=== PATIENT | female | born 1955 | race Caucasian/White ===

== ENCOUNTER 2020-02-07 13:56 | Outpatient (CLI) | payer MEDICARE, SELFPAY ==
--- NOTE | 2020-02-07 14:06 | XR_ITS ---
WS: [id number] SCREENING DEXA SCAN [employer] CLINICAL INFORMATION: POST MENOPAUSAL SCREENING FOR OSTEOPOROSIS COMPARISON: None. FINDINGS: Included risk factors include family history, history of fracture, and secondary osteoporos is The L1-L4 bone mineral density measures 1.217 g/cm2. This corresponds to a T score score of 0.3 and Z score of 1.7. Left femoral neck bone mineral density measures 0.951 g/cm2. This corresponds to a T score of -0.4 an d Z score of 0.6. Right femoral neck bone mineral density measures 0.940 g/cm2. This corresponds to a T score -0.5of an d Z score of 0.5. Mean femoral neck bone mineral density measures 0.946 g/cm2. This corresponds to a T score of -0.5 an d Z score of 0.6. XR/XR DEXA axial skeleton* [id number] IMPRESSION: Normal bone mineralization. Patient's FRAX calculated 10 year probability for major osteoporotic fracture i s 25.4 % and osteoporotic hip fracture is 1.6%.
== END 2020-02-07 13:57 | disposition home or self-care (01) ==
LOC: RADWPI 13:59
PROVIDERS: Family Provider Family Medicine; PCP Family Medicine; Visit Provider Family Medicine
DX: Z78.0 Asymptomatic menopausal state (principal)
CPT/HCPCS: 77080

== ENCOUNTER → 2020-02-26 11:56 | Outpatient (BNVA) | payer MEDICARE, SELFPAY | PROVIDERS: Family Provider Family Medicine; PCP Family Medicine; Visit Provider Nurse Practitioner Family | DX: Z11.59 Encounter for screening for other viral diseases (principal) | CPT/HCPCS: 87635 ==

== ENCOUNTER → 2020-05-31 10:41 | Outpatient (BNVA) | payer MEDICARE, SELFPAY | PROVIDERS: Family Provider Family Medicine; PCP Family Medicine | DX: Z20.828 Contact with and (suspected) exposure to other viral communicable diseases (principal) | CPT/HCPCS: 87635 ==

== ENCOUNTER 2020-06-19 10:05 | Outpatient (CLI) | payer MEDICARE, SELFPAY ==
--- NOTE | 2020-06-19 10:32 | XR_ITS ---
WS: [id number] KNEE LEFT TECHNIQUE: 3 views of the left knee CLINICAL INFORMATION: KNEE PAIN COMPARISON: None. FINDINGS: Mild soft tissue edema. Osteopenia. Mild tricompartmental arthritis. Slightly hypertrophic patella. N o significant joint effusion. No acute fractures. XR/XR knee LT 3V* [id number] IMPRESSION: Mild soft tissue edema with mild tricompartment arthritis. No acute fractures.
== END 2020-06-19 10:06 | disposition home or self-care (01) ==
LOC: RADWPI 10:13
PROVIDERS: PCP Family Medicine; Visit Provider Family Medicine
DX: R60.0 Localized edema (principal); M13.862 Other specified arthritis, left knee
CPT/HCPCS: 73562

== ENCOUNTER 2020-07-29 07:57 | Outpatient (CLI) | payer MEDICARE, SELFPAY ==
--- NOTE | 2020-07-29 08:06 | MR_ITS ---
WS: [id number] MRI LEFT KNEE NONCONTRAST TECHNIQUE: Axial PD, coronal PD fat sat, coronal PD, sagittal PD, and sagittal PD fat-sat images obta ined. CLINICAL INFORMATION: KNEE PAIN;LEFT LEG PAIN COMPARISON: None. FINDINGS: Distal quadriceps and patella tendons are normal. Small suprapatellar effusion. Normal ACL and PCL. N ormal medial meniscus. Small horizontal tear involving the anterior horn lateral meniscus extending t o the articular surface. This extends to the meniscal root. Advanced chondromalacia patella with subc hondral edema. This is worse involving the lateral patella facet. Moderate degenerative arthritis inv olving the medial and lateral joint compartments and patellofemoral articulation. Medial and lateral collateral ligaments are intact. Normal popliteal fossa. MR/MR knee LT wo con* [id number] IMPRESSION: 1. Normal anterior and posterior cruciate ligaments. 2. Small horizontal tear involving the anterior horn lateral meniscus. 3. Moderate tricompartmental arthritis. 4. Advanced chondromalacia patella with a small amount of subchondral edema.
== END 2020-07-29 07:58 | disposition home or self-care (01) ==
LOC: RADSHAW 08:04
PROVIDERS: PCP Family Medicine; Visit Provider Family Medicine
DX: S83.282A Other tear of lateral meniscus, current injury, left knee, initial encounter (principal); X58.XXXA Exposure to other specified factors, initial encounter; M17.12 Unilateral primary osteoarthritis, left knee; M22.42 Chondromalacia patellae, left knee; R60.0 Localized edema
CPT/HCPCS: 73721

== ENCOUNTER 2020-12-05 11:59 | Outpatient (CLI) | payer MEDICARE, SELFPAY ==
--- NOTE | 2020-12-05 12:05 | MM_ITS ---
WS: [id number] Bilateral screening digital mammogram, 12/05/2020 Clinical Data: SCREENING Comparison: 07/17/2019, 06/13/2018, 05/27/2017, 05/12/2016, 02/03/2015, 11/30/2013, 11/20/2012, 10/14/2011, 08/06/2010, 07/07/2009, 06/24/2008, 06/12/2007, 06/07/2006. Findings: The breast parenchymal pattern shows heterogeneous density No spiculated masses or clustered calcific ations are seen. There are no secondary signs of carcinoma. MM/[place] [id number] Impression: 1. Negative bilateral mammogram unchanged. 2. Recommend annual screening mammograms. BIRADS: 1-Negative FOLLOW UP: 1 Year Follow-up The CAD glass checker was used.
== END 2020-12-05 12:00 | disposition home or self-care (01) ==
LOC: RADSHAW 12:04
PROVIDERS: PCP Family Medicine; Visit Provider Family Medicine
DX: Z12.31 Encounter for screening mammogram for malignant neoplasm of breast (principal)
CPT/HCPCS: 77067

== ENCOUNTER 2022-02-09 14:18 | Outpatient (CLI) | payer MEDICARE, SELFPAY ==
--- NOTE | 2022-02-09 14:21 | MM_ITS ---
WS: [id number] BILATERAL 3D TOMOSYNTHESIS DIGITAL SCREENING MAMMOGRAPHY WITH CAD CLINICAL INFORMATION: SCREENING HISTORY: Screening mammogram. No current complaints. COMPARISON: December 05, 2020 TECHNIQUE: Bilateral CC and MLO views. FINDINGS: The breasts are composed of heterogeneous fibroglandular density tissue, which can limit the detectio n of small underlying mass lesions. Incidental calcifications RIGHT breast. No suspicious mass, asymm etry, calcifications, or architectural distortion. No evidence of malignancy. MM/[place] [id number] IMPRESSION: BI-RADS: 2-Benign FOLLOW UP: 1 Year Follow-up Recommend return to annual screening mammography.
== END 2022-02-09 14:19 | disposition home or self-care (01) ==
LOC: RAD 14:20
PROVIDERS: PCP Family Medicine; Visit Provider Family Medicine
DX: Z12.31 Encounter for screening mammogram for malignant neoplasm of breast (principal)
CPT/HCPCS: 77063; 77067

== ENCOUNTER 2022-05-18 10:31 | Outpatient (CLI) | payer MEDICARE, SELFPAY ==
--- NOTE | 2022-05-18 10:45 | XR_ITS ---
WS: [id number] Right shoulder, 3 views, 05/18/2022 Clinical Data: shoulder pain Comparison: None. Findings: No fractures or dislocations are seen. The AC joint is normal. The adjacent right clavicle, right sca pula and ribs are normal. The soft tissues are unremarkable. There are small artifacts in the right infra clavicular region. XR/XR shoulder RT min 2V* [id number] Impression: Negative right shoulder.
== END 2022-05-18 10:32 | disposition home or self-care (01) ==
PROVIDERS: PCP Family Medicine; Visit Provider Family Medicine
DX: M25.511 Pain in right shoulder (principal); E11.9 Type 2 diabetes mellitus without complications; E78.5 Hyperlipidemia, unspecified; I10 Essential (primary) hypertension; M19.019 Primary osteoarthritis, unspecified shoulder
CPT/HCPCS: 73030; 80053; 80061; 82607; 83036

== ENCOUNTER 2022-11-05 08:16 | Outpatient (CLI) | payer MEDICARE, SELFPAY ==
[2022-11-05 09:27] LABS: Basophils # 0.1 10^3/uL (0.0-0.1); Basophils % 1.1 %; Eosinophils # 0.3 10^3/uL (0.0-0.8); Eosinophils % 3.2 %; Hemoglobin 14.5 g/dL (11.5-15.3); Lymphocytes # 2.7 10^3/uL (0.8-4.8); Lymphocytes % 32.1 %; Mean Corpuscular Hemoglobin 27.5 pg (28.0-34.0); Mean Corpuscular Volume 83.5 fl (81-99); Mean Platelet Volume 10.6 fL (7.4-10.4); Monocytes # 0.6 10^3/uL (0.2-0.9); Monocytes % 6.6 %; Neutrophils % 56.6 %; Nucleated Red Blood Cells % 0 %; Platelet Count 315 10^3/cmm (130-400); Red Blood Count 5.27 10^6/uL (4.1-5.3); Red Cell Distribution Width 13.9 % (12.1-15.1); White Blood Count 8.5 10^3/uL (4.0-10.0)
[2022-11-05 09:41] LABS: Estmated Average Glucose 197; Hemoglobin A1C 8.5 % (4.0-6.0)
[2022-11-05 10:02] LABS: Alanine Aminotransferase 29 U/L (0-33); Albumin Level 4.3 g/dL (3.5-5.2); Alkaline Phosphatase 81 U/L (35-105); Anion Gap 17.3 (5-19); Aspartate Amino Transferase 26 U/L (0-32); Blood Urea Nitrogen 10 mg/dL (8-23); Calcium 9.6 mg/dL (8.5-10.5); Carbon Dioxide 26 mmol/L (22-29); Chloride 98 mmol/L (98-107); Chol HDL Ratio 3.45 mg/dL (0.0-4.40); Cholesterol 190 mg/dL (0-200); Glomerular Filtration Rate 122.7 mL/min (90-130); Glucose 160 mg/dL (65-115); HDL Cholesterol 55 mg/dL (60-100); LDL Cholesterol Calculated 99 mg/dL (50-129); Osmolality Calculated 286 mOsm/kg (285-295); Potassium 4.3 mmol/L (3.5-5.1); Sodium 137 mmol/L (136-145); Thyroid Stimulating Hormone 1.63 uIU/mL (0.27-4.20); Total Bilirubin 0.3 mg/dL (0.15-1.2); Total Protein 7.3 g/dL (6.6-8.7); Triglycerides 178 mg/dL (0-150)
== END 2022-11-05 08:17 | disposition home or self-care (01) ==
PROVIDERS: Visit Provider Internal Medicine
DX: E11.9 Type 2 diabetes mellitus without complications (principal)
CPT/HCPCS: 36415; 80053; 80061; 83036; 84443; 85025

== ENCOUNTER → 2022-12-30 09:09 | Outpatient (BNVA) | payer MEDICARE, SELFPAY | PROVIDERS: Visit Provider Internal Medicine Cardiovascular Disease | DX: R00.2 Palpitations (principal); R00.0 Tachycardia, unspecified; I49.1 Atrial premature depolarization; I49.3 Ventricular premature depolarization | CPT/HCPCS: 93225 ==

== ENCOUNTER → 2023-05-12 08:30 | Outpatient (BNVA) | payer MEDICARE, SELFPAY | PROVIDERS: Visit Provider Nurse Practitioner Family | DX: R09.81 Nasal congestion (principal); Z20.822 Contact with and (suspected) exposure to COVID-19 | CPT/HCPCS: 87426 ==

== ENCOUNTER 2023-05-17 11:52 | Outpatient (CLI) | payer MEDICARE, SELFPAY ==
--- NOTE | 2023-05-17 12:01 | MM_ITS ---
WS: [id number] BILATERAL 3D TOMOSYNTHESIS DIGITAL SCREENING MAMMOGRAPHY WITH CAD CLINICAL INFORMATION: SCREENING HISTORY: Screening mammogram. No current complaints. COMPARISON: 2021 TECHNIQUE: Bilateral CC and MLO views. FINDINGS: The breasts are composed of heterogeneous fibroglandular density tissue, which can limit the detectio n of small underlying mass lesions. No suspicious mass, asymmetry, calcifications, or architectural d istortion. No evidence of malignancy. Incidental punctate calcifications. IMPRESSION: MM/[id number] BI-RADS: 2-Benign FOLLOW UP: 1 Year Follow-up Recommend return to annual screening mammography.
== END 2023-05-17 11:53 | disposition home or self-care (01) ==
PROVIDERS: Visit Provider Internal Medicine
DX: Z12.31 Encounter for screening mammogram for malignant neoplasm of breast (principal)
CPT/HCPCS: 77063; 77067

== ENCOUNTER 2024-06-15 09:24 | Outpatient (CLI) | payer MEDICARE, SELFPAY ==
--- NOTE | 2024-06-15 09:25 | MM_ITS ---
WS: [id number] Bilateral screening 3D tomosynthesis digital mammogram, 06/15/2024 9:28 AM Clinical Data: SCREENING Comparison: 05/17/2023, 02/09/2022, 12/05/2020, 07/17/2019, 06/13/2018, 05/27/2017, 05/12/2016, 02/03/2015 , 11/30/2013, 11/20/2012, 10/14/2011, 08/06/2010, 07/07/2009, 06/24/2008, 06/12/2007, 06/07/2006. Findings: No spiculated masses or clustered calcifications are seen. There are no secondary signs of carcinoma . MM/MM scr BI tomosynthesis [id number] Impression: Negative bilateral mammogram unchanged. Recommend annual screening mammograms. BIRADS: 1 - Negative FOLLOW UP: 1 Year Follow-up DENSITY: The breasts are heterogeneously dense, which may obscure small masses. The CAD tool drawing checker was used
== END 2024-06-15 09:25 | disposition home or self-care (01) ==
PROVIDERS: Visit Provider Family Medicine
DX: Z12.31 Encounter for screening mammogram for malignant neoplasm of breast (principal)
CPT/HCPCS: 77063; 77067

== ENCOUNTER 2024-07-04 13:38 | Outpatient (CLI) | payer MEDICARE, SELFPAY ==
--- NOTE | 2024-07-04 13:44 | USCV_ITS ---
Maricel Hoffman Age: 69 Gender: F : 1955 Exam Date: 07/04/2024 14:00 Ordering Phys: Abrahan Burgess MD Technologist: MEGHAN [place] [facility] [place]: FATIGUE BP: 129 / 69 HR: 76 Rhythm: Sinus Technical Quality: Adequate MEASUREMENTS (Male / Female) Normal Values 2D ECHO LV Diastolic Diameter PLAX 4.6 cm 4.2 - 5.9 / 3.9 - 5.3 cm IVS Diastolic Thickness 1.3 cm 0.6 - 1.0 / 0.6 - 0.9 cm IVS Systolic Thickness 1.5 cm LVPW Diastolic Thickness 1.5 cm 0.6 - 1.0 / 0.6 - 0.9 cm LVPW Systolic Thickness 1.7 cm LVOT Diameter 2.0 cm LV Ejection Fraction 2D Teich 60.3 % LV Ejection Fraction MOD 4C 65.6 % LV Ejection Fraction MOD 2C 67.6 % LV Ejection Fraction 2C AL 66.8 % LA Diameter 2.6 cm RA Systolic Volume 4C AL 11.5 ml RA Systolic Volume 4C MOD 11.5 ml LA Sys Volume AL 21.9 cm cubed LA Sys Volume Index AL 11.8 cm cubed/m squared Aorta at Sinotubular Diameter 2.4 cm IVC Diameter 1.5 cm M-MODE LA Ao Ratio MM 1.1 AV Cusp Separation MM 1.5 cm DOPPLER AV Peak Velocity 114.0 cm/s LVOT Peak Velocity 94.0 cm/s AV Area Cont Eq vti 2.1 cm squared AV Area Cont Eq pk 2.5 cm squared MV Peak Velocity 99.0 cm/s MV Area PHT 4.3 cm squared Mitral E to A Ratio 0.8 TR Peak Velocity 168.0 cm/s TR Peak Gradient 11.3 mmHg TR Mean Velocity 153.0 cm/s TR Mean Gradient 9.5 mmHg TR Velocity Time Integral 50.4 cm TV Peak E Velocity 53.0 cm/s PV Peak Velocity 101.0 cm/s RV Ejection Time 0.3 s FINDINGS Left Ventricle Left ventricular is normal in size. LV systolic function is normal with EF of 60 to 65%. No regional wall motion abnormalities are seen. Grade 1 diastolic dysfunction. Right Ventricle Normal in size and function Right Atrium Normal in size Left Atrium Normal in size Mitral Valve Structurally normal mitral valve. Trace mitral regurgitation. Aortic Valve Structurally normal aortic valve. No significant stenosis or regurgitation. Tricuspid Valve Insufficient TR jet to calculate RVSP Pulmonic Valve Not well visualized Pericardium Normal Aorta Normal in size IVC Appears to be normal CONCLUSIONS LV systolic function is normal with EF of 60 to 65%. Grade 1 diastolic dysfunction. Trace mitral regurgitation No comparison studies are available. Werner Medina MD (Electronically Signed) Final Date: 05 July 2024 07:29 S
== END 2024-07-04 13:39 | disposition home or self-care (01) ==
LOC: RAD 13:40
PROVIDERS: PCP Family Medicine; Visit Provider Family Medicine
DX: I50.30 Unspecified diastolic (congestive) heart failure (principal); R53.83 Other fatigue
CPT/HCPCS: 93306

== ENCOUNTER 2024-07-12 00:59 | Emergency (ER) | payer MEDICARE, SELFPAY ==
[2024-07-12 01:04] VITALS: BP 139/83; PULSE 97; RESP 18; TEMP 36.3; O2SAT 98; BMI 26.7
[2024-07-12 01:06] VITALS: BP 139/83; PULSE 97; RESP 17; O2SAT 98
[2024-07-12] MEDS: ondansetron 2 mg/ML SDV 2 mL 4 MG IVP (01:24)
[2024-07-12] MEDS: sodium chloride 0.9% 500 ML 999 ML IV (01:24)
[2024-07-12 01:25] LABS: Basophils # 0.1 10^3/uL (0.0-0.1); Basophils % 0.3 %; Eosinophils # 0.1 10^3/uL (0.0-0.8); Eosinophils % 0.6 %; Hematocrit 46.7 % (36-47); Lymphocytes # 2.5 10^3/uL (0.8-4.8); Lymphocytes % 15.7 %; Mean Corpuscular HGB Conc 33.6 g/dL (30-55); Mean Corpuscular Hemoglobin 27.4 pg (27-33); Mean Corpuscular Volume 81.5 fl (85-98); Mean Platelet Volume 9.8 fL (7.4-10.4); Monocytes # 0.9 10^3/uL (0.2-0.9); Monocytes % 5.8 %; Neutrophils # 12.28 10^3/uL (1.8-7.7); Neutrophils % 77.3 %; Nucleated Red Blood Cells % 0 %; Platelet Count 351 10^3/cmm (157-399); Red Blood Count 5.73 10^6/uL (3.85-5.65); Red Cell Distribution Width 13.4 % (12.1-15.1); White Blood Count 15.89 10^3/uL (3.29-11.43)
--- NOTE | 2024-07-12 01:30 | ED_ITS ---
HPI - Nausea/Vomiting/Diarrhea 2 General: Chief complaint: Nausea/Vomiting/Diarrhea Stated complaint: Vomiting\Diah Time Seen by Provider: 07/12/24 01:06 History of Present Illness: Patient presents to the ER with complaints of nausea vomiting diarrhea that all started today about 8 PM. She said she has vomited multiple times but is slow down but then the diarrhea started picking up. Patient denies any fevers chills coughs colds bad food or sick contacts. Denies abdominal pain other than when she is vomiting. No pain burning frequency with urinating Related Data Home Medications Medication Instructions Recorded Confirmed allergy pill PO 05/31/20 10/09/23 glimepiride 4 mg tablet mg PO 05/12/23 10/09/23 losartan 100 mg tablet tab PO 05/12/23 10/09/23 pantoprazole 20 mg tablet,delayed tab PO 05/12/23 10/09/23 release sitagliptin phosphate 100 mg mg PO 05/12/23 10/09/23 tablet (Januvia) trazodone 100 mg tablet mg PO 05/12/23 10/09/23 Previous Rx's Medication Instructions Recorded BD single use swabs, true metrix #1 ea 04/21/22 level 1 control solution, true metrix blood glucose meter and trueplus 3 levocetirizine 5 mg tablet See Rx Instructions .Route 05/04/22 .COMPLEX #90 tabs blood sugar diagnostic (Accu-Chek #400 strips 05/06/22 Stephanie Plus test strips) metformin 1,000 mg tablet See Rx Instructions .Route 09/13/22 .COMPLEX #180 tabs glipizide 5 mg tablet 2.5 mg (1/2 x 5 mg) PO DAILY for 10/07/22 DM #45 tabs alcohol swabs (DropSafe Alcohol See Rx Instructions .Route 10/10/22 Prep Pads) .COMPLEX #100 swabs alprazolam 0.25 mg tablet 0.125 - 0.25 mg (0.5 - 1 x 0.25 10/10/22 mg) PO BID #60 tabs blood glucose control, low (True #1 ea 10/10/22 Metrix Level 1 solution) blood-glucose meter (True Metrix #1 kit 10/10/22 Air Glucose Meter kit) lancets 33 gauge (TRUEplus Lancets) #100 ea 10/10/22 fluticasone propionate 50 1 - 2 spray intranasal DAILY #16 09/15/23 mcg/actuation nasal grams spray,suspension amoxicillin 875 mg-potassium 1 tab PO BID 10 days #20 tabs 10/09/23 clavulanate 125 mg tablet ondansetron HCl 4 mg tablet 4 mg PO Q8H PRN nausea and 07/12/24 vomiting #14 tabs Allergies Allergy/AdvReac Type Severity Reaction Status Date / Time aspirin Allergy swelling, Verified 07/12/24 01:07 puffy face, rash Review of Systems 2 General: Reports: 10 or more systems reviewed and unremarkable except in HPI and below PFSH ED 2 PFSH: Medical History Carpal tunnel syndrome of right wrist Trigger finger Hyperlipidemia Hypertension Diabetes Surgical History H/O section H/O: hysterectomy Family History Other Diabetes Hypertension Social History Smoking and tobacco/nicotine status: never used tobacco/nicotine Alcohol intake: never Substance/Drug Use: never Female Reproductive History: Spontaneous abortions: No Physical Exam 2 Const: COMMON NORMALS: no acute distress, average body habitus, patient oriented x3, no limitations, healthy appearing, alert and well nourished HENMT: COMMON NORMALS: normocephalic, atraumatic, hearing grossly normal bilaterally, external ears normal, Normal external nose present and moist oral mucous membranes HEAD & SCALP: normocephalic and atraumatic NOSE: Normal external nose present EXTERNAL EAR: Yes external ears normal Neck/C-Spine: COMMON NORMALS: no JVD Chest: COMMONS NORMALS: normal inspection of the chest and normal palpation of entire chest wall Resp: COMMON NORMALS: normal respiratory effort, No retractions, No use of accessory muscles and clear to auscultation bilaterally AUSCULTATION: clear to auscultation bilaterally Cardio: COMMON NORMALS: no JVD, regular rate, regular rhythm, S1 normal heart sound present, S2 normal heart sound present, No gallops present (Cardio), No clicks present (Cardio), No murmurs present (Cardio) and No rub (Cardio) R ATE: regular rate RHYTHM: regular rhythm HEART SOUNDS: S1 normal heart sound present and S2 normal heart sound present GI: COMMON NORMALS: Normal to inspection, nondistended, normoactive bowel sounds present, Soft to palpation, non-tender, No hepatosplenomegaly present and no masses PALPATION: Yes Soft to palpation and Yes No hepatosplenomegaly present Neuro: COMMON NORMALS: patient oriented x3 SENSORIUM/ORIENTATION: Yes alert Course 2 Vital Signs: Vital signs: Vital Signs Temperature 97.3 F L 07/12/24 01:04 Pulse Rate 83 07/12/24 02:06 Respiratory Rate 16 07/12/24 02:06 Blood Pressure 131/68 07/12/24 02:06 Pulse Oximetry 95 07/12/24 02:06 Oxygen Delivery Me thod Room Air 07/12/24 02:06 MDM - Nausea/Vomiting/Diarrhea Medical Decision Making Patient was given 500 mL of normal saline bolus and 4 mg Zofran, was waiting for lab work to come back which came back as unremarkable. Patient says she felt much better and will be discharged home. Patient had no bouts of vomiting or diarrhea during the ER. Medical Records I reviewed the patient's medical records. Lab Data I reviewed the patient's lab results. 07/12/24 01:20 07/12/24 01:20 Laboratory Results WBC 15.89 10^3/uL (3.29-11.43) H 07/12/24 01:20 RBC 5.73 10^6/uL (3.85-5.65) H 07/12/24 01:20 Hgb 15.70 g/dL (11.27-16.99) 07/12/24 01:20 Hct 46.7 % (36-47) 07/12/24 01:20 MCV 81.5 fl (85-98) L 07/12/24 01:20 MCH 27.4 pg (27-33) 07/12/24 01:20 MCHC 33.6 g/dL (30-55) 07/12/24 01:20 RDW 13.4 % (12.1-15.1) 07/12/24 01:20 Plt Count 351 10^3/cmm (157-399) 07/12/24 01:20 MPV 9.8 fL (7.4-10.4) 07/12/24 01:20 Neut % (Auto) 77.3 % 07/12/24 01:20 Lymph % (Auto) 15.7 % 07/12/24 01:20 [place] % (Auto) 5.8 % 07/12/24 01:20 Eos % (Auto) 0.6 % 07/12/24 01:20 Baso % (Auto) 0.3 % 07/12/24 01:20 Neut # (Auto) 12.28 10^3/uL (1.8-7.7) H 07/12/24 01:20 Lymph # (Auto) 2.5 10^3/uL (0.8-4.8) 07/12/24 01:20 [place] # (Auto) 0.9 10^3/uL (0.2-0.9) 07/12/24 01:20 Eos # (Auto) 0.1 10^3/uL (0.0-0.8) 07/12/24 01:20 Baso # (Auto) 0.1 10^3/uL (0.0-0.1) 07/12/24 01:20 Nucleated RBC % (auto) 0 % 07/12/24 01:20 Nucleated RBCs # 0.0 /100WBC 07/12/24 01:20 Sodium 139 mmol/L (136-145) 07/12/24 01:20 Potassium 3.8 mmol/L (3.5-5.1) 07/12/24 01:20 Chloride 96 mmol/L (98-107) L 07/12/24 01:20 Carbon Dioxide 26 mmol/L (22-29) 07/12/24 01:20 Anion Gap 20.8 (5-19) H 07/12/24 01:20 BUN 14 mg/dL (8-23) 07/12/24 01:20 Creatinine 0.6 mg/dL (0.5-0.9) 07/12/24 01:20 GFR Calculation 98.8 mL/min (90-130) 07/12/24 01:20 Glucose 243 mg/dL (65-115) H 07/12/24 01:20 Calculated Osmolality 297 mOsm/kg (285-295) H 07/12/24 01:20 Calcium 10.4 mg/dL (8.5-10.5) 07/12/24 01:20 Magnesium 1.5 mg/dL (1.7-2.3) L 07/12/24 01:20 Total Bilirubin 0.6 mg/dL (0.15-1.2) 07/12/24 01:20 AST 20 U/L (0-32) 07/12/24 01:20 ALT 21 U/L (0-33) 07/12/24 01:20 Alkaline Phosphatase 85 U/L (35-105) 07/12/24 01:20 Total Protein 7.8 g/dL (6.6-8.7) 07/12/24 01:20 Albumin 4.6 g/dL (3.5-5.2) 07/12/24 01:20 Globulin 3.2 g/dL (1.3-4.6) 07/12/24 01:20 Urine Color Yellow (Yellow) 07/12/24 02:00 Urine Appearance Clear (CLEAR) 07/12/24 02:00 Urine pH 6.5 (5-7) 07/12/24 02:00 Ur Specific Matthews 1.026 (1.005-1.030) 07/12/24 02:00 Urine Protein Trace (Negative) A 07/12/24 02:00 Urine Glucose (UA) Trace (Normal) H 07/12/24 02:00 Urine Ketones 2+ (Negative) H 07/12/24 02:00 Urine Blood Negative (Negative) 07/12/24 02:00 Urine Nitrate Negative (Negative) 07/12/24 02:00 Urine Bilirubin Negative (Negative) 07/12/24 02:00 Urine Urobilinogen 1.0 mg/dL (Negative) 07/12/24 02:00 Ur Leukocyte Esterase Negative (Negative) 07/12/24 02:00 Urine RBC 0-2 /hpf (0-2) 07/12/24 02:00 Urine WBC 0-5 /hpf (0-5) 07/12/24 02:00 Ur Squamous Epith Cells 0-5 /hpf (0-5) 07/12/24 02:00 Amorphous Sediment Not Reportable 07/12/24 02:00 Urine Bacteria None seen /hpf (NONE) 07/12/24 02:00 Hyaline Casts 0.81 /lpf 07/12/24 02:00 All radiology interpretation(s) finalized by discharge Discharge Plan Discharge Patient Disposition: Home Clinical Impression: Gastroenteritis Condition: Stable Prescriptions: New ondansetron HCl 4 mg tablet 4 mg PO Q8H PRN (Reason: nausea and vomiting) Qty: 14 0RF No Action allergy pill PO losartan 100 mg tablet PO glimepiride 4 mg tablet PO Januvia 100 mg tablet PO pantoprazole 20 mg tablet,delayed release (DR/EC) PO trazodone 100 mg tablet PO amoxicillin-pot clavulanate 875-125 mg tablet 1 tab PO BID 10 Days Qty: 20 0RF (DME) BD single use swabs, true metrix level 1 control solution, true metrix blood glucose meter and trueplus 3 See Rx Instructions .Route .MEDSUPPLY Qty: 1 0RF Rx Instructions: check blood sugars once daily, some fasting and some 1 hr post meal levocetirizine 5 mg tablet See Rx Instructions .ROUTE .COMPLEX Qty: 90 3RF Dose Instruction: TAKE 1 TABLET EVERY DAY FOR ALLERGIES Rx Instructions: TAKE 1 TABLET EVERY DAY FOR ALLERGIES (DME) Accu-Chek Stephanie Plus test strp Strip See Rx Instructions .ROUTE .COMPLEX Qty: 400 5RF Dose Instruction: TEST FASTING BLOOD SUGAR DAILY AND ONE HOUR POST MEALS FOR MONITORING DIABETES Rx Instructions: TEST FASTING BLOOD SUGAR DAILY AND ONE HOUR POST MEALS FOR MONITORING DIABETES metformin 1,000 mg tablet See Rx Instructions .ROUTE .COMPLEX Qty: 180 3RF Dose Instruction: TAKE 1 TABLET TWICE DAILY FOR DIABETES Rx Instructions: TAKE 1 TABLET TWICE DAILY FOR DIABETES glipizide 5 mg tablet 2.5 mg PO DAILY Qty: 45 3RF alprazolam 0.25 mg tablet 0.125 - 0.25 mg PO BID Qty: 60 5RF (DME) blood-glucose meter [True Metrix Air Glucose Meter] Kit See Rx Instructions .ROUTE .COMPLEX Qty: 1 11RF Dose Instruction: USE DIRECTED Rx Instructions: USE DIRECTED (DME) True Metrix Level 1 Solution See Rx Instructions .ROUTE .COMPLEX Qty: 1 11RF Dose Instruction: USE DIRECTED WITH GLUCOSE METER Rx Instructions: USE DIRECTED WITH GLUCOSE METER alcohol swabs [DropSafe Alcohol Prep Pads] Pads, Medicated See Rx Instructions .ROUTE .COMPLEX Qty: 100 11RF Dose Instruction: USE TO CHECK BLOOD SUGAR ONE TIME DAILY, SOME FASTING AND SOME 1 HOUR POST MEAL Rx Instructions: USE TO CHECK BLOOD SUGAR ONE TIME DAILY, SOME FASTING AND SOME 1 HOUR POST MEAL (DME) lancets [TRUEplus Lancets] 33 gauge misc See Rx Instructions .ROUTE .COMPLEX Qty: 100 11RF Dose Instruction: CHECK BLOOD SUGAR ONE TIME DAILY, SOME FASTING AND SOME 1 HOUR POST MEAL Rx Instructions: CHECK BLOOD SUGAR ONE TIME DAILY, SOME FASTING AND SOME 1 HOUR POST MEAL fluticasone propionate 50 mcg/actuation spray,suspension 1 - 2 spray intranasal DAILY Qty: 16 5RF Rx Instructions: administer into each nostril Discharge Orders: Discharge ED (Routine); Ordered 07/12/24 Ordered By: Narciso Davis Referrals: Abrahan Burgess MD [Primary Care Provider] - 1 week Patient Instructions: Gastroenteritis (ED) Activity Restrictions/Additional Instructions: Thank you for choosing [facility] for your healthcare needs today. Please realize that you were seen in the emergency department and that we are providing you with an emergency medical screening exam and this may not be a complete and all exclusive of all testing and/or medical workup we may need to determine your element or severity of your illness. It is very important that you follow-up as instructed with your primary care provider or specialist for the additional evaluation and to discuss your medical treatment plan. You may return to the emergency department should you have concerns or if your condition changes or worsens in any way. Coding Level of Care Code ED Extended Insurance Clerk for Rafaela Presley
[2024-07-12 01:49] LABS: Alanine Aminotransferase 21 U/L (0-33); Albumin Level 4.6 g/dL (3.5-5.2); Alkaline Phosphatase 85 U/L (35-105); Anion Gap 20.8 (5-19); Aspartate Amino Transferase 20 U/L (0-32); Blood Urea Nitrogen 14 mg/dL (8-23); Calcium 10.4 mg/dL (8.5-10.5); Carbon Dioxide 26 mmol/L (22-29); Chloride 96 mmol/L (98-107); Creatinine Clr Calc Pharmacy 60.7776; Globulin 3.2 g/dL (1.3-4.6); Glomerular Filtration Rate 98.8 mL/min (90-130); Glucose 243 mg/dL (65-115); Magnesium 1.5 mg/dL (1.7-2.3); Osmolality Calculated 297 mOsm/kg (285-295); Potassium 3.8 mmol/L (3.5-5.1); Sodium 139 mmol/L (136-145); Total Bilirubin 0.6 mg/dL (0.15-1.2); Total Protein 7.8 g/dL (6.6-8.7)
[2024-07-12 02:06] VITALS: BP 131/68; PULSE 83; RESP 16; O2SAT 95
[2024-07-12 02:24] LABS: Bilirubin Urine Negative (Negative); Blood Urine Negative (Negative); Glucose Urine UA Trace (Normal); Ketones Urine 2+ (Negative); Leukocyte Esterase Urine Negative (Negative); Nitrate Urine Negative (Negative); Protein Urine Trace (Negative); Specific Gravity, Urine 1.026 (1.005-1.030); Urine Appearance Clear (CLEAR); Urine Color Yellow (Yellow); pH Urine 6.5 (5-7)
[2024-07-12 02:29] LABS: Add Urine Microscopic? YES; Bacteria Urine None Seen /hpf; Hyaline Casts Urine 0.81 /lpf; RBC Urine 0-2 /hpf (0-2); Squamous Epithelial Cell Urine 0-5 /hpf (0-5); WBC Urine 0-5 /hpf (0-5)
[2024-07-12 02:30] VITALS: BP 130/69; PULSE 83; RESP 16; O2SAT 96
[2024-07-12 03:00] VITALS: BP 127/80; PULSE 88; RESP 17; O2SAT 92
[2024-07-12 03:29] VITALS: BP 127/80; PULSE 70; O2SAT 96
== END 2024-07-12 03:29 | disposition home or self-care (01) ==
PROVIDERS: Emergency Provider Emergency Medicine; PCP Family Medicine
DX: K52.9 Noninfective gastroenteritis and colitis, unspecified (principal); E11.9 Type 2 diabetes mellitus without complications; I10 Essential (primary) hypertension; E78.5 Hyperlipidemia, unspecified
CPT/HCPCS: 36415; 80053; 81001; 83735; 85025; 96361; 96374; 99284; J2405; J7040

== ENCOUNTER 2024-12-24 08:25 | Emergency (ER) | payer MEDICARE, SELFPAY ==
[2024-12-24 08:44] VITALS: BP 159/88; PULSE 100; RESP 18; TEMP 36.7; O2SAT 98; BMI 27.1
[2024-12-24 09:05] LABS: Basophils # 0.1 10^3/uL (0.0-0.1); Basophils % 0.5 %; Eosinophils # 0.1 10^3/uL (0.0-0.8); Eosinophils % 0.6 %; Hematocrit 45.4 % (36-47); Lymphocytes % 21.5 %; Mean Corpuscular HGB Conc 32.6 g/dL (30-55); Mean Corpuscular Hemoglobin 27.5 pg (27-33); Mean Corpuscular Volume 84.2 fl (85-98); Mean Platelet Volume 10.1 fL (7.4-10.4); Monocytes # 1.1 10^3/uL (0.2-0.9); Neutrophils # 9.59 10^3/uL (1.8-7.7); Nucleated Red Blood Cells % 0 %; Platelet Count 282 10^3/cmm (157-399); Red Blood Count 5.39 10^6/uL (3.85-5.65); Red Cell Distribution Width 13.4 % (12.1-15.1); White Blood Count 13.93 10^3/uL (3.29-11.43)
[2024-12-24 09:23] LABS: Alanine Aminotransferase 13 U/L (0-33); Alkaline Phosphatase 100 U/L (35-105); Anion Gap 18.1 (5-19); Aspartate Amino Transferase 13 U/L (0-32); Blood Urea Nitrogen 5 mg/dL (8-23); Carbon Dioxide 25 mmol/L (22-29); Chloride 96 mmol/L (98-107); Creatinine Clr Calc Pharmacy 61.1528; Globulin 3.5 g/dL (1.3-4.6); Glomerular Filtration Rate 98.8 mL/min (90-130); Glucose 208 mg/dL (65-115); Lipase 31 U/L (13-60); Osmolality Calculated 283 mOsm/kg (285-295); Potassium 4.1 mmol/L (3.5-5.1); Sodium 135 mmol/L (136-145); Total Bilirubin 0.6 mg/dL (0.15-1.2); Total Protein 7.5 g/dL (6.6-8.7)
[2024-12-24 09:30] VITALS: BP 119/78; PULSE 89; O2SAT 99
--- NOTE | 2024-12-24 09:44 | W.ED.ABDPA2 ---
HPI - Abdominal Pain General: Chief Complaint: Abdominal Pain Stated Complaint: abd pain, BM problems Time Seen by Provider: 12/24/24 08:55 History of Present Illness: 69-year-old female presents emergency room planing of abdominal pain. She has painful bowel movements. She states she has sharp cramping pain whenever she has a bowel movement she feels like things are tearing inside. She reports states has been going on for last 2 months that she started taking Trulicity. She has tried several hoor-aoi-eevomlu medications to help with her bowels but has not had any improvement with them. She denies any medic easy melena hematemesis or coffee-ground emesis no chest pain or shortness of breath. Associated Symptoms: Reports diarrhea; Denies chills, dysuria, fever(s), nausea and vomiting Related Data Home Medications ?Medication ?Instructions ?Recorded ?Confirmed glimepiride 4 mg tablet 4 mg PO TID 05/12/23 12/24/24 pantoprazole 20 mg tablet,delayed 1 tab PO DAILY 05/12/23 12/24/24 release acetaminophen 500 mg tablet 1,000 mg PO QID PRN Fever Or Pain 12/24/24 12/24/24 (Tylenol Extra Strength) docusate sodium 100 mg capsule 100 mg PO DAILY PRN Constipation 12/24/24 12/24/24 dulaglutide 3 mg/0.5 mL 3 mg SUBCUT Q7D 12/24/24 12/24/24 subcutaneous pen injector (Trulicity) losartan 100 mg tablet 100 mg PO DAILY 12/24/24 12/24/24 sodium phosphates 19 gram-7 118 ml KS DAILY PRN Constipation 12/24/24 12/24/24 gram/118 mL enema (Fleet Enema) suvorexant 10 mg tablet (Belsomra) 10 mg PO BEDTIME PRN Sleep 12/24/24 12/24/24 Previous Rx's ?Medication ?Instructions ?Recorded BD single use swabs, true metrix #1 ea 04/21/22 level 1 control solution, true metrix blood glucose meter and trueplus 3 levocetirizine 5 mg tablet See Rx Instructions .Route 05/04/22 .COMPLEX #90 tabs blood sugar diagnostic (Accu-Chek #400 strips 05/06/22 Stephanie Plus test strips) metformin 1,000 mg tablet See Rx Instructions .Route 02/13/23 .COMPLEX #180 tabs alprazolam 0.25 mg tablet 0.125 - 0.25 mg (0.5 - 1 x 0.25 10/10/22 mg) PO BID #60 tabs blood glucose control, low (True #1 ea 10/10/22 Metrix Level 1 solution) blood-glucose meter (True Metrix #1 kit 10/10/22 Air Glucose Meter kit) lancets 33 gauge (TRUEplus Lancets) #100 ea 10/10/22 fluticasone propionate 50 1 - 2 spray intranasal DAILY #16 09/15/23 mcg/actuation nasal grams spray,suspension amoxicillin 875 mg-potassium 1 tab PO BID #14 tabs 12/24/24 clavulanate 125 mg tablet hydrocodone 5 mg-acetaminophen 325 1 tab PO Q6H PRN pain #10 tabs 12/24/24 mg tablet promethazine 25 mg tablet 25 mg PO Q6H PRN nausea and 12/24/24 vomiting #20 tabs Allergies Allergy/AdvReac Type Severity Reaction Status Date / Time aspirin Allergy swelling, Verified 07/14/24 10:03 puffy face, rash Review of Systems Const: Denies: fever(s) or chills Card: Denies: chest pain Resp: Denies: dyspnea GI: Reports: diarrhea; Denies: abdominal pain, nausea or vomiting : Denies: dysuria, urinary frequency or urinary urgency Musc: Denies: neck pain or back pain Skin/Breast: Denies: rash PFSH ED PFSH: Medical History Carpal tunnel syndrome of right wrist Trigger finger Hyperlipidemia Hypertension Diabetes Surgical History H/O section H/O: hysterectomy Family History Other Diabetes Hypertension Social History Smoking and tobacco/nicotine status: unknown if used tobacco/nicotine Alcohol intake: never Substance/Drug Use: never Female Reproductive History: Spontaneous abortions: No Physical Exam Const: GENERAL APPEARANCE: cooperative ORIENTATION/CONSCIOUSNESS: Yes awake, Yes oriented to person, Yes oriented to place and Yes oriented to time HENMT: COMMON NORMALS: normocephalic, atraumatic and hearing grossly normal bilaterally HEAD & SCALP: normocephalic and atraumatic Resp: COMMON NORMALS: normal respiratory effort, No retractions, No use of accessory muscles and clear to auscultation bilaterally AUSCULTATION: clear to auscultation bilaterally Cardio: COMMON NORMALS: regular rate, regular rhythm and No murmurs present (Cardio) RATE: regular rate RHYTHM: regular rhythm GI: COMMON NORMALS: No hepatosplenomegaly present AUSCULTATION: Yes normoactive bowel sounds PALPATION: Yes Tenderness to palpation present (GI) Details: LLQ, No Guarding due to palpation present (GI) and Yes No hepatosplenomegaly present Extremity: COMMON NORMALS: normal to inspection, capillary refill normal, no clubbing, cyanosis or edema, no calf tenderness and no pedal edema Neuro: SENSORIUM/ORIENTATION: Yes oriented to person, Yes oriented to place and Yes oriented to time Skin: COMMON NORMALS: no rashes or lesions noted GENERAL SKIN EXAM: no rashes or lesions noted Course Vital Signs: Vital signs: Vital Signs Temperature 98.1 F 12/24/24 08:44 Pulse Rate 100 12/24/24 08:44 Respiratory Rate 18 12/24/24 08:44 Blood Pressure 159/88 12/24/24 08:44 Pulse Oximetry 98 12/24/24 08:44 Oxygen Delivery Me thod Room Air 12/24/24 08:44 MDM - Abdominal Pain Medical Decision Making Mild leukocytosis CT shows acute diverticulitis. No perforation. Will start patient on Augmentin also give hydrocodone promethazine to use as needed liquid diet for 2 to 3 days and advance as tolerated. Patient tells me that she has a colonoscopy scheduled for January 10 she should contact her physician to make sure they do not want to delay that given this recent infection. Return if has worsening problems. Medical Records I reviewed the patient's medical records. Lab Data I reviewed the patient's lab results. 12/24/24 08:50 12/24/24 08:50 Labs/Radiology: Radiology Impressions Abdomen/Pelvis CT 12/24/24 09:45 IMPRESSION: 1. Findings compatible with uncomplicated acute diverticulitis. No evidence of perforation or abscess formation. 2. Nonobstructing nephrolithiasis in the lower pole of the right kidney. Multifocal right renal cortical scarring. Mild right urothelial enhancement. Recommend correlation with urinalysis to exclude ureteritis. No definitive evidence of obstructing right ureteral calculus. 3. Mild hepatomegaly and hepatic steatosis. COMMENTS: Consistent with the [employer]'s Incidental Findings Committee white paper (J Am Lolis Radiol 2018): Any incidental renal lesion less than 1 cm or classified as too small to characterize, or any incidental cystic renal lesion characterized as simple-appearing, is likely benign. No follow-up imaging is recommended for these lesions per consensus recommendations based on imaging criteria. Laboratory Results WBC 13.93 10^3/uL (3.29-11.43) H 12/24/24 08:50 RBC 5.39 10^6/uL (3.85-5.65) 12/24/24 08:50 Hgb 14.80 g/dL (11.27-16.99) 12/24/24 08:50 Hct 45.4 % (36-47) 12/24/24 08:50 MCV 84.2 fl (85-98) L 12/24/24 08:50 MCH 27.5 pg (27-33) 12/24/24 08:50 MCHC 32.6 g/dL (30-55) 12/24/24 08:50 RDW 13.4 % (12.1-15.1) 12/24/24 08:50 Plt Count 282 10^3/cmm (157-399) 12/24/24 08:50 MPV 10.1 fL (7.4-10.4) 12/24/24 08:50 Neut % (Auto) 69.0 % 12/24/24 08:50 Lymph % (Auto) 21.5 % 12/24/24 08:50 [place] % (Auto) 8.0 % 12/24/24 08:50 Eos % (Auto) 0.6 % 12/24/24 08:50 Baso % (Auto) 0.5 % 12/24/24 08:50 Neut # (Auto) 9.59 10^3/uL (1.8-7.7) H 12/24/24 08:50 Lymph # (Auto) 3.0 10^3/uL (0.8-4.8) 12/24/24 08:50 [place] # (Auto) 1.1 10^3/uL (0.2-0.9) H 12/24/24 08:50 Eos # (Auto) 0.1 10^3/uL (0.0-0.8) 12/24/24 08:50 Baso # (Auto) 0.1 10^3/uL (0.0-0.1) 12/24/24 08:50 Nucleated RBC % (auto) 0 % 12/24/24 08:50 Nucleated RBCs # 0.0 /100WBC 12/24/24 08:50 Sodium 135 mmol/L (136-145) L 12/24/24 08:50 Potassium 4.1 mmol/L (3.5-5.1) 12/24/24 08:50 Chloride 96 mmol/L (98-107) L 12/24/24 08:50 Carbon Dioxide 25 mmol/L (22-29) 12/24/24 08:50 Anion Gap 18.1 (5-19) 12/24/24 08:50 BUN 5 mg/dL (8-23) L 12/24/24 08:50 Creatinine 0.6 mg/dL (0.5-0.9) 12/24/24 08:50 GFR Calculation 98.8 mL/min (90-130) 12/24/24 08:50 Glucose 208 mg/dL (65-115) H 12/24/24 08:50 Calculated Osmolality 283 mOsm/kg (285-295) L 12/24/24 08:50 Calcium 10.0 mg/dL (8.5-10.5) 12/24/24 08:50 Total Bilirubin 0.6 mg/dL (0.15-1.2) 12/24/24 08:50 AST 13 U/L (0-32) 12/24/24 08:50 ALT 13 U/L (0-33) 12/24/24 08:50 Alkaline Phosphatase 100 U/L (35-105) 12/24/24 08:50 Total Protein 7.5 g/dL (6.6-8.7) 12/24/24 08:50 Albumin 4.0 g/dL (3.5-5.2) 12/24/24 08:50 Globulin 3.5 g/dL (1.3-4.6) 12/24/24 08:50 Lipase 31 U/L (13-60) 12/24/24 08:50 Urine Color Yellow (Yellow) 12/24/24 10:25 Urine Appearance Clear (CLEAR) 12/24/24 10:25 Urine pH 7.0 (5-7) 12/24/24 10:25 Ur Specific [place] 1.045 (1.005-1.030) H 12/24/24 10:25 Urine Protein Negative (Negative) 12/24/24 10:25 Urine Glucose (UA) Negative (Normal) 12/24/24 10:25 Urine Ketones Negative (Negative) 12/24/24 10:25 Urine Blood Negative (Negative) 12/24/24 10:25 Urine Nitrate Negative (Negative) 12/24/24 10:25 Urine Bilirubin Negative (Negative) 12/24/24 10:25 Urine Urobilinogen 0.2 mg/dL (Negative) 12/24/24 10:25 Ur Leukocyte Esterase Negative (Negative) 12/24/24 10:25 Urine RBC 0-2 /hpf (0-2) 12/24/24 10:25 Urine WBC 0-5 /hpf (0-5) 12/24/24 10:25 Ur Squamous Epith Cells 0-5 /hpf (0-5) 12/24/24 10:25 Amorphous Sediment Not Reportable 12/24/24 10:25 Urine Bacteria None seen /hpf (NONE) 12/24/24 10:25 Hyaline Casts 0-4 /lpf H 12/24/24 10:25 All radiology interpretation(s) finalized by discharge Discharge Plan Discharge Patient Disposition: Home Clinical Impression: Diverticulitis Condition: Stable Prescriptions: New hydrocodone-acetaminophen 5-325 mg tablet 1 tab PO Q6H PRN (Reason: pain) Qty: 10 0RF promethazine 25 mg tablet 25 mg PO Q6H PRN (Reason: nausea and vomiting) Qty: 20 0RF amoxicillin-pot clavulanate 875-125 mg tablet 1 tab PO BID Qty: 14 0RF No Action glimepiride 4 mg tablet 4 mg PO TID pantoprazole 20 mg tablet,delayed release (DR/EC) 1 tab PO DAILY (DME) BD single use swabs, true metrix level 1 control solution, true metrix blood glucose meter and trueplus 3 See Rx Instructions .Route .MEDSUPPLY Qty: 1 0RF Rx Instructions: check blood sugars once daily, some fasting and some 1 hr post meal levocetirizine 5 mg tablet See Rx Instructions .ROUTE .COMPLEX Qty: 90 3RF Dose Instruction: TAKE 1 TABLET EVERY DAY FOR ALLERGIES Rx Instructions: TAKE 1 TABLET EVERY DAY FOR ALLERGIES (DME) Accu-Chek Stephanie Plus test strp Strip See Rx Instructions .ROUTE .COMPLEX Qty: 400 5RF Dose Instruction: TEST FASTING BLOOD SUGAR DAILY AND ONE HOUR POST MEALS FOR MONITORING DIABETES Rx Instructions: TEST FASTING BLOOD SUGAR DAILY AND ONE HOUR POST MEALS FOR MONITORING DIABETES metformin 1,000 mg tablet See Rx Instructions .ROUTE .COMPLEX Qty: 180 3RF Dose Instruction: TAKE 1 TABLET TWICE DAILY FOR DIABETES Rx Instructions: TAKE 1 TABLET TWICE DAILY FOR DIABETES alprazolam 0.25 mg tablet 0.125 - 0.25 mg PO BID Qty: 60 5RF (DME) blood-glucose meter [True Metrix Air Glucose Meter] Kit See Rx Instructions .ROUTE .COMPLEX Qty: 1 11RF Dose Instruction: USE DIRECTED Rx Instructions: USE DIRECTED (DME) True Metrix Level 1 Solution See Rx Instructions .ROUTE .COMPLEX Qty: 1 11RF Dose Instruction: USE DIRECTED WITH GLUCOSE METER Rx Instructions: USE DIRECTED WITH GLUCOSE METER (DME) lancets [TRUEplus Lancets] 33 gauge misc See Rx Instructions .ROUTE .COMPLEX Qty: 100 11RF Dose Instruction: CHECK BLOOD SUGAR ONE TIME DAILY, SOME FASTING AND SOME 1 HOUR POST MEAL Rx Instructions: CHECK BLOOD SUGAR ONE TIME DAILY, SOME FASTING AND SOME 1 HOUR POST MEAL fluticasone propionate 50 mcg/actuation spray,suspension 1 - 2 spray intranasal DAILY Qty: 16 5RF Rx Instructions: administer into each nostril losartan 100 mg tablet 100 mg PO DAILY Belsomra 10 mg tablet 10 mg PO BEDTIME PRN (Reason: Sleep) Trulicity 3 mg/0.5 mL pen injector 3 mg SUBCUT Q7D acetaminophen [Tylenol Extra Strength] 500 mg Tablet 1,000 mg PO QID PRN (Reason: Fever Or Pain) Fleet Enema 19-7 gram/118 mL Enema 118 ml KS DAILY PRN (Reason: Constipation) docusate sodium [Doculax] 100 mg Capsule 100 mg PO DAILY PRN (Reason: Constipation) Discharge Orders: Discharge ED (Routine); Ordered 12/24/24 Ordered By: Silas Driscoll Referrals: Abrahan Burgess MD [Primary Care Provider, Family Practice] Discharge Diet: As Directed Patient Instructions: Diverticulitis (ED), Opioid Safety, Pain Management Activity Restrictions/Additional Instructions: Thank you for choosing [facility] for your healthcare needs today. It is very important that you follow up as instructed or that you return to the Emergency Department should you have concerns or if your condition changes or worsens in any way. You are seen in the emergency room for abdominal pain. CT shows you have a acute diverticulitis there is no evidence of any rupture recommend clear liquid diet for the next 2 to 3 days then advance as tolerated. You are also given instructions regarding diverticulitis. You had mentioned you have an upcoming colonoscopy on January 10 he should contact the doctor that is planning to do this to see if they wish to change the date because of this episode of diverticulitis. Print Language: Turkish Coding Level of Care Code ED Shell Machine Operator for Rafaela Presley
--- NOTE | 2024-12-24 09:45 | CTR_ITS ---
PROCEDURE INFORMATION: Exam: CT Abdomen And Pelvis With Contrast Exam date and time: 12/24/2024 10:06 AM Age: 69 years old Clinical indication: Abdominal pain; Localized; Lower; Prior surgery; Surgery date: 6+ months; Surgery type: C section, hyster; Additional info: Abd pain TECHNIQUE: Imaging protocol: Computed tomography of the abdomen and pelvis with contrast. Radiation optimization: All CT scans at this facility use at least one of these dose optimization techniques: automated exposure control; mA and/or kV adjustment per patient size (includes targeted exams where dose is matched to clinical indication); or iterative reconstruction. Contrast material: OMNIPAQUE 350; Contrast volume: 100 ml; Contrast route: INTRAVENOUS (IV); COMPARISON: CR XR chest 1V [id number] 05/07/2019 1:26 PM RADIATION DOSE METRICS: Total DLP (mGy-cm): 511.43 FINDINGS: Lungs: The lung bases are clear. Liver: The liver is mildly enlarged measuring 18.6 cm craniocaudally. Decreased attenuation of the liver. Gallbladder and biliary ducts: Normal. No calcified stones. No ductal dilation. Pancreas: Normal. No ductal dilation. Spleen: Normal. No splenomegaly. Splenule noted in the left upper quadrant. Adrenal glands: Normal. No mass. Kidneys and ureters: Punctate nonobstructing nephrolithiasis in the lower pole of the right kidney. Multifocal renal cortical scarring involving the right kidney with scattered subcentimeter cortical hypodensities too small to further characterize but likely representing small renal cysts. There is mild prominence of the right ureter with mild urothelial enhancement. No evidence obstructing ureteral calculus or significant right hydronephrosis. The left kidney is unremarkable. Stomach and bowel: Colonic diverticulosis. Focal wall thickening and pericolonic fat stranding noted at the level of the sigmoid colon. No pericolonic abscess formation. No perforation. Appendix: The appendix is partially air-filled and unremarkable. Intraperitoneal space: No intraperitoneal free air. Vasculature: Moderate aortoiliac atherosclerosis. Lymph nodes: Unremarkable. No enlarged lymph nodes. Urinary bladder: Unremarkable as visualized. Reproductive: Status post hysterectomy. Bones/joints: Moderate multilevel degenerative disease of the thoracolumbar spine. Soft tissues: Tiny fat containing umbilical hernia. CT/CT abdomen pelvis w con* [id number] IMPRESSION: 1. Findings compatible with uncomplicated acute diverticulitis. No evidence of perforation or abscess formation. 2. Nonobstructing nephrolithiasis in the lower pole of the right kidney. Multifocal right renal cortical scarring. Mild right urothelial enhancement. Recommend correlation with urinalysis to exclude ureteritis. No definitive evidence of obstructing right ureteral calculus. 3. Mild hepatomegaly and hepatic steatosis. COMMENTS: Consistent with the [employer]'s Incidental Findings Committee white paper (J Am Lolis Radiol 2018): Any incidental renal lesion less than 1 cm or classified as too small to characterize, or any incidental cystic renal lesion characterized as simple-appearing, is likely benign. No follow-up imaging is recommended for these lesions per consensus recommendations based on imaging criteria.
[2024-12-24] MEDS: iohexol 350 mg/mL 500 mL Btl (per mL) IV (10:08)
[2024-12-24 10:30] VITALS: BP 154/85; PULSE 91; O2SAT 100
[2024-12-24 10:54] LABS: Bilirubin Urine Negative (Negative); Blood Urine Negative (Negative); Glucose Urine UA Negative (Normal); Ketones Urine Negative (Negative); Leukocyte Esterase Urine Negative (Negative); Nitrate Urine Negative (Negative); Protein Urine Negative (Negative); Urine Appearance Clear (CLEAR); Urine Color Yellow (Yellow); Urobilinogen Urine 0.2 mg/dL (Negative)
[2024-12-24 10:59] LABS: Add Urine Microscopic? YES; Bacteria Urine None Seen /hpf; Hyaline Casts Urine 0-4 /lpf; RBC Urine 0-2 /hpf (0-2); Squamous Epithelial Cell Urine 0-5 /hpf (0-5); WBC Urine 0-5 /hpf (0-5)
[2024-12-24 11:00] VITALS: BP 126/84; PULSE 89; O2SAT 94
[2024-12-24 11:09] LABS: Specific Gravity, Urine 1.045 (1.005-1.030)
[2024-12-24 11:31] VITALS: BP 126/84; PULSE 91; O2SAT 93
== END 2024-12-24 11:31 | disposition home or self-care (01) ==
PROVIDERS: Emergency Provider Family Medicine; PCP Family Medicine
DX: K57.32 Diverticulitis of large intestine without perforation or abscess without bleeding (principal); E78.5 Hyperlipidemia, unspecified; I10 Essential (primary) hypertension; E11.9 Type 2 diabetes mellitus without complications; Z79.85 Long-term (current) use of injectable non-insulin antidiabetic drugs; Z79.899 Other long term (current) drug therapy; Z79.84 Long term (current) use of oral hypoglycemic drugs
CPT/HCPCS: 74177; 80053; 81001; 83690; 85025; 99285

== ENCOUNTER → 2025-06-20 09:53 | Outpatient (BNVA) | payer MEDICARE, SELFPAY | PROVIDERS: PCP Family Medicine; Visit Provider Dermatology | DX: L57.0 Actinic keratosis (principal); L30.8 Other specified dermatitis; L64.8 Other androgenic alopecia; L82.1 Other seborrheic keratosis; L72.0 Epidermal cyst; L91.8 Other hypertrophic disorders of the skin; L85.3 Xerosis cutis | CPT/HCPCS: 99204 ==

== ENCOUNTER 2025-07-10 09:13 | Outpatient (CLI) | payer MEDICARE, SELFPAY ==
--- NOTE | 2025-07-10 09:18 | MM_ITS ---
WS: [id number] BILATERAL SCREENING DIGITAL TOMOSYNTHESIS MAMMOGRAM WITH CAD HISTORY: SCREENING COMPARISON: 06/15/2024, 05/17/2023, 02/09/2022 Bilateral CC and MLO views with tomosynthesis and synthetic mammography submitted. Computer aided detection analyzed. Breast composition: The breasts are heterogeneously dense, which may obscure small masses. No suspicious masses, microcalcifications or architectural distortion. Scattered asymmetries are stable. Benign calcifications. MM/MM scr tomosynthesis [id number] IMPRESSION: BI-RADS: 2 - Benign FOLLOW UP: 1 Year Follow-up
== END 2025-07-10 09:14 | disposition home or self-care (01) ==
LOC: RAD 09:15
PROVIDERS: PCP Family Medicine; Visit Provider Family Medicine
DX: Z12.31 Encounter for screening mammogram for malignant neoplasm of breast (principal); R92.333 Mammographic heterogeneous density, bilateral breasts; R92.1 Mammographic calcification found on diagnostic imaging of breast; N64.89 Other specified disorders of breast
CPT/HCPCS: 77063; 77067